=== PATIENT | male | born 1965 | race Two or more races ===

== ENCOUNTER → 2018-04-21 | Day surgery (SDC) | payer OTHER ==
[2018-04-17 16:05] VITALS: BMI 30.4
[2018-04-21 09:21] VITALS: TEMP 97.6
[2018-04-21 09:55] VITALS: BP 102/61; PULSE 60
--- NOTE | 2018-04-22 13:22 | PATH ---
Surgical Pathology Report Patient Name: LISA KIM [facility]. Rec. #: [id number] /Age/Gender: 1965 (Age: 52) / M Account: [id number] Location: U-ENDOSCOPY Taken: 04/21/2018 Received: 04/21/2018 Reported: 04/22/2018 Physicians: Ravi Sanders D.O. Specimen(s) Received A: BX CECAL POLYP B: POLYP SIGMOID Clinical History Colon screening Postoperative diagnosis: Diverticulosis, colon polyps, hemorrhoids Final Diagnosis A. CECAL POLYP, BIOPSY: TUBULAR ADENOMA. B. SIGMOID COLON, POLYP, BIOPSY: HYPERPLASTIC POLYP. Electronically Signed Aimee Ybarra M.D. Gross Description A. Received in formalin, labeled "biopsy cecal polyp" is a sandy, irregular portion of soft tissue measuring 0.3 cm. in greatest dimension. The specimen is submitted in toto in one cassette. B. Received in formalin, labeled "biopsy sigmoid polyp" are 2 sandy, irregular portions of soft tissue averaging 0.3 cm. in greatest dimension. The specimens are submitted in toto in one cassette. /04/21/2018 saudi04/21/2018
== END | disposition home or self-care (01) ==
LOC: JASU-ENDO 07:59
PROVIDERS: ATTEND Internal Medicine Gastroenterology
PROC: 0DBN8ZX Excision of Sigmoid Colon, Via Natural or Artificial Opening Endoscopic, Diagnostic (ICD-10-PCS; 2018-04-21)
PROC: 0DBH8ZX Excision of Cecum, Via Natural or Artificial Opening Endoscopic, Diagnostic (ICD-10-PCS; principal; 2018-04-21 09:00)
DX: Z12.11 Encounter for screening for malignant neoplasm of colon (principal); K57.30 Diverticulosis of large intestine without perforation or abscess without bleeding; K64.8 Other hemorrhoids; D12.0 Benign neoplasm of cecum; D12.5 Benign neoplasm of sigmoid colon
CPT/HCPCS: 88305-TC

== ENCOUNTER 2020-11-17 06:44 | Day surgery (SDC) | payer OTHER ==
[2020-11-08 14:29] VITALS: BMI 29.2
[~2020-11-17 06:44] MED LIST: BUPIVACAINE HCL/PF 0.25% (2.5MG/ML) 10 ML VIAL IJ ONE
[2020-11-17] MEDS ORDERED: PROMETHAZINE HCL 25 MG/1 ML VIAL IVPUSH PRN (08:36)
[2020-11-17] MEDS ORDERED: LACTATED RINGERS SOLUTION 1,000 ML IV SCH (08:45)
[2020-11-17] MEDS ORDERED: MIDAZOLAM HCL 2 MG/2 ML SINGLE DOSE VIAL ONE (08:46)
[2020-11-17] MEDS ORDERED: ceFAZolin SODIUM 1 GM VIAL ONE (08:48)
[2020-11-17] MEDS ORDERED: BUPIVACAINE HCL/PF 2.5 MG/ML - 30 ML VIAL IJ ONE (08:49)
[2020-11-17] MEDS ORDERED: KETAMINE HCL 200 MG/20 ML VIAL ONE (08:49)
[2020-11-17] MEDS ORDERED: PROPOFOL 20 ML ONE (09:11)
[2020-11-17] MEDS ORDERED: BUPIVACAINE HCL/PF 0.25% (2.5MG/ML) 10 ML VIAL IJ ONE (09:28)
[2020-11-17 11:35] VITALS: BP 130/74; PULSE 66; TEMP 97.9
== END 2020-11-17 11:35 | disposition home or self-care (01) ==
LOC: FASU 06:44
PROVIDERS: ATTEND Orthopaedic Surgery
PROC: 0SBD4ZZ Excision of Left Knee Joint, Percutaneous Endoscopic Approach (ICD-10-PCS; 2020-11-17)
PROC: 0SBD4ZZ Excision of Left Knee Joint, Percutaneous Endoscopic Approach (ICD-10-PCS; principal; 2020-11-17 09:13)
DX: S83.242A Other tear of medial meniscus, current injury, left knee, initial encounter (principal); S83.282A Other tear of lateral meniscus, current injury, left knee, initial encounter; S83.8X2A Sprain of other specified parts of left knee, initial encounter; M65.862 Other synovitis and tenosynovitis, left lower leg; X58.XXXA Exposure to other specified factors, initial encounter; Y93.9 Activity, unspecified; Y92.9 Unspecified place or not applicable
CPT/HCPCS: 88304-TC; 94760